=== PATIENT | female | born 1955 | race African-American/Black ===

== ENCOUNTER 2023-10-30 22:02 | Emergency (ER) | payer MEDICAID ==
[~2023-10-30] VITALS: Ht 154.9 cm; Wt 72.5 kg
[2023-10-30 22:14] VITALS: BP 161/113
[2023-10-30 23:04] LABS: BASOPHILS % 0.5 % (0.0-2.0); HEMOGLOBIN. 14.5 g/dL (12.0-16.0); LYMPHOCYTES % 7.8 % (20.0-50.0); MEAN CORPUSCULAR HEMOGLOBIN 31.2 pg (28.0-32.0); MEAN CORPUSCULAR HGB CONC 34.4 g/dL (31.0-37.0); MEAN CORPUSCULAR VOLUME 90.8 fL (81.0-99.0); MEAN PLATELET VOLUME 8.4 fl (7.4-10.4); MONOCYTES % 9.7 % (2.0-8.0); PLATELET 278 x1000/uL (130-400); RED BLOOD CELL COUNT 4.63 mill/uL (4.2-5.4); RED CELL DISTRIBUTION WIDTH 15.1 % (11.6-14.6); WHITE BLOOD COUNT 8.3 x1000/uL (4.5-11.0)
[2023-10-30 23:09] LABS: CLARITY URINE CLEAR (CLEAR); COLOR URINE YELLOW (YELLOW); GLUCOSE URINE NEGATIVE (NEGATIVE); KETONES URINE NEGATIVE (NEGATIVE); LEUKOCYTE ESTERASE URINE TRACE (NEGATIVE); NITRITE URINE NEGATIVE (NEGATIVE); OCCULT BLOOD URINE NEGATIVE (NEGATIVE); PROTEIN URINE 1+ (NEGATIVE); SPECIFIC GRAVITY URINE 1.034 (1.005-1.030)
[2023-10-30 23:18] LABS: PARTIAL THROMBOPLASTIN TIME 26.2 sec (23.4-31.0); PROTHROMBIN TIME 10.9 sec (9.6-11.0)
[2023-10-30 23:19] LABS: ALANINE AMINOTRANSFERASE 14 IU/L (10-49); ALBUMIN 4.7 g/dL (3.2-4.8); ASPARTATE AMINOTRANSFERASE 28 IU/L (<34); BILIRUBIN TOTAL 0.5 mg/dL (0.1-1.0); CALCIUM 9.3 mg/dL (8.7-10.4); CARBON DIOXIDE 29 mEq/L (21-32); CHLORIDE 105 mEq/L (98-107); CREATININE 0.8 mg/dL (0.6-1.0); GLUCOSE 118 mg/dL (70-105); POTASSIUM 3.9 mEq/L (3.5-5.1); PROTEIN TOTAL 7.9 g/dL (6.0-8.3); SODIUM 142 mEq/L (136-145); TROPONIN I HIGH SENSITIVITY 4 ng/L (3.0-34); UREA NITROGEN BLOOD 21 mg/dL (9-23)
[2023-10-30 23:29] LABS: BACTERIA URINE 2+; RBC URINE 0-2 /hpf (0-2); SQUAMOUS EPITHELIAL CELL URINE 1+ /lpf (RARE/1+); WBC URINE 0-2 /hpf (0-2)
[2023-10-30] MEDS ORDERED: PREDNISONE 20MG TABLET PO ONE (23:45)
[2023-10-31 00:48] VITALS: PULSE 86; RESP 20; O2SAT 97
[2023-10-31] MEDS: ALBUTEROL (0.083%) 2.5MG/3ML NEB HHN ONE (00:48)
[2023-10-31] MEDS ORDERED: ALBU18HF2 IH (01:09)
[2023-10-31] MEDS ORDERED: P50 MT (01:09)
[2023-10-31] MEDS ORDERED: PREDNISONE 20MG TABLET PO NR (01:30)
== END 2023-10-31 02:09 | disposition home or self-care (01) ==
LOC: ER 22:33
DX: B34.9 Viral infection, unspecified (principal); Z20.822 Contact with and (suspected) exposure to COVID-19
CPT/HCPCS: 80053; 81003; 83690; 85025; 85610; 85730; 84484; 36415; 71045; 94640; 93005; 99285; 87804 ×2; 87426; Z7610 ×3; J7512